=== PATIENT | female | born 1970 | race Hispanic/Latino ===

== ENCOUNTER 2017-12-03 07:06 | Day surgery (SDC) | payer MEDICARE ==
[2017-12-03 07:18] VITALS: BMI 23.1
[2017-12-03 07:51] LABS: BASO # 0.1 K/uL (0.0-0.2); BASO % 1.2 % (0.0-2.0); EOS # 0.2 K/uL (0.0-0.7); HEMOGLOBIN 11.6 g/dL (11.0-16.0); LYMPH # 1.6 K/uL (1.0-4.3); LYMPH % 30.9 % (20.0-40.0); MEAN CELL VOLUME 89.5 fL (81.0-99.0); MEAN CORPUSCULAR HEMOGLOBIN 30.1 pg (27.0-31.0); MEAN CORPUSCULAR HGB CONC 33.6 g/dL (33.0-37.0); MEAN PLATELET VOLUME 8.2 fL (7.2-11.7); MONO # 0.4 K/uL (0.0-0.8); MONO % 8.5 % (0.0-10.0); NEUT # 2.8 K/uL (1.8-7.0); NEUT % 55.4 % (50.0-75.0); RBC 3.84 Mil/uL (3.80-5.20); RED CELL DISTRIBUTION WIDTH 14.7 % (11.5-14.5); WHITE BLOOD COUNT 5.1 K/uL (4.8-10.8)
[2017-12-03 07:59] LABS: PROTHROMBIN TIME 11.3 SECONDS (9.7-12.2)
[2017-12-03 08:00] LABS: BLOOD UREA NITROGEN 7 mg/dL (7-17); CALCIUM 9.1 mg/dl (8.6-10.4); GFR AFRICAN-AMERICAN > 60; GFR NON-AFRICAN AMERICAN > 60
[2017-12-03] MEDS ORDERED: Iodixanol 320 MG/ML 100 ML BOTTLE IV ONE (12:20)
[2017-12-03] MEDS ORDERED: Midazolam 2 MG/2 ML VIAL ONE ×2 (12:24→12:28)
--- NOTE | 2017-12-03 15:51 | CARD ---
APPROVED REPORT EKG Measurement Heart [id number] ID [id number] <Conclusion> Sinus rhythm with short ID Otherwise normal ECG
== END 2017-12-03 16:31 | disposition home or self-care (01) ==
LOC: C.SPRAD 07:06
PROVIDERS: ATTEND Internal Medicine Interventional Cardiology
DX: I73.9 Peripheral vascular disease, unspecified (principal); I49.8 Other specified cardiac arrhythmias
CPT/HCPCS: 36247; 36415; 75625; 75716; 75774; 80048; 85025; 85610; 85730; 93005; C1760; C1887; J1644; J2250; J3010; Q9967